=== PATIENT | female | born 1980 | race Two or more races ===

== ENCOUNTER 2018-06-02 08:43 | Emergency (ER) | payer SELFPAY ==
[2018-06-02 08:48] VITALS: BMI 33.3
--- NOTE | 2018-06-02 09:02 | PDOC ---
History of Present Illness - General Chief Complaint: Urinary Problem Stated Complaint: URINARY PROBLEM Time Seen by Provider: 06/02/18 08:51 History Source: Patient Exam Limitations: No Limitations - History of Present Illness Initial Comments: 06/02/18 09:05 This is a 37 YOF with h/o kidney stones (last 3 years ago) and HTN (medicated) who p/w acute onset 8/10 non-radiation left lower flank pain which started abruptly at 4 am and feels very similar to her prior kidney stones. She went to urinate and noticed blood-tinged urine as well as mild burning on urination. She additionally notes chills this morning, but denies any measured fever and denies n/v/d/v, rash, skin changes, n/t, focal weakness, vaginal bleeding or discharge, or any other symptoms recently. She was feeling well yesterday. She took Tylenol after the onset this morning but no additional medications. Past History - Past Medical History Allergies/Adverse Reactions: Allergies Allergy/AdvReac Type Severity Reaction Status Date / Time No Known Drug Allergies Allergy Verified 06/02/18 08:48 Home Medications: Ambulatory Orders Amlodipine Besylate [Norvasc -] 10 mg PO DAILY 10/17/15 Lisinopril/Hydrochlorothiazide [Lisinopril-Hctz 20-25 mg Tab] 1 each PO DAILY Oxycodone HCl/Acetaminophen [Percocet 5-325 mg Tablet] 1 tab PO Q6H PRN #12 tablet MDD 4 06/02/18 Sulfamethoxazole/Trimethoprim [Bactrim Ds -] 1 tab PO BID #14 tablet 06/02/18 Tamsulosin HCl [Flomax -] 0.4 mg PO DAILY #7 capsule 06/02/18 COPD: No HTN: Yes Kidney Stones: Yes - Surgical History Cholecystectomy: Yes - Reproductive History (#): 1 Para: 0 - Immunization History Immunization Up to Date: Yes - Suicide/Smoking/Psychosocial Hx Smoking History: Current every day smoker Have you smoked in the past 12 months: Yes Number of Cigarettes Smoked Daily: 3 Information on smoking cessation initiated: No Hx Alcohol Use: No Drug/Substance Use Hx: No Substance Use Type: None Hx Substance Use Treatment: No Review of Systems - Review of Systems Able to Perform ROS?: Yes Constitutional: Yes: Chills. No: Fever, Unexplained wgt Loss HEENTM: No: Nose Congestion, Throat Pain Respiratory: No: Cough, Shortness of Breath Cardiac (ROS): No: Chest Pain, Palpitations ABD/GI: No: Constipated, Diarrhea, Nausea, Vomiting : Yes: Burning, Dysuria, Flank Pain, Hematuria Musculoskeletal: No: Joint Pain, Neck Pain Integumentary: No: Bruising, Rash Neurological: No: Headache, Numbness, Tingling, Weakness, Dizziness Endocrine: No: Unexplained Weight Gain, Unexplained Weight Loss *Physical Exam - Vital Signs Last Vital Signs Temp Pulse Resp BP Pulse Ox 98.3 F 109 H 18 163/101 99 06/02/18 08:45 06/02/18 08:45 06/02/18 08:45 06/02/18 08:45 06/02/18 08:45 06/02/18 09:10 GENERAL: nontoxic and well-appearing, nourished, A/Ox4, slightly uncomfortable appearing and standing during H&P but no distress, speaking in full sentences in Indonesian, answers questions appropriately, accompanied by daughter HEENT: PERRLA, EOMI, moist mucous membranes, no posterior pharyngeal erythema, no tonsillar swelling or exudates, no cervical lymphadenopathy NECK: No cervical spine midline ttp or stepoff or deformity, full ROM, supple CARDIOVASCULAR: Regular rate and rhythm, normal S1S2, no MGR, radial and DP pulses 2+ and symmetric, capillary refill <2 seconds, extremities warm and well- perfused Chest wall: Normal appearance, no rash, no bruising, no costal stepoff or deformity, nontender to compression LUNGS/RESPIRATORY: No respiratory distress, normal and symmetric chest movements during respirations, lungs CTA bilaterally, equal breath sounds, no cyanosis, no nail clubbing GI/ABDOMEN: Normal symmetric appearance, normoactive bowel sounds, soft, no tenderness to palpation, no midline pulsatile masses, no palpated organomegaly : No CVA tenderness (even on the left) BACK: No midline ttp or stepoff or deformity of thoracic or lumbar spine EXTREMITIES: distal pulses 2+, warm and well-perfused, no LE edema SKIN: Warm and dry, no pallor, no jaundice, no bruising, no rash, no skin breakdown, no cuts, no lesions NEUROLOGICAL: GCS 15, CN II-XII grossly intact, ambulating with normal gait, moving all extremities, 5/5 strength proximally and distally, no facial droop, no decreased sensation ED Treatment Course - LABORATORY CBC & Chemistry Diagram: 06/02/18 09:15 06/02/18 09:02 Medical Decision Making - Medical Decision Making 06/02/18 09:11 Pt p/w left flank pain similar to her prior kidney stones. Initial Vital Signs Temp Pulse Resp BP Pulse Ox 98.3 F 109 H 18 163/101 99 06/02/18 08:45 06/02/18 08:45 06/02/18 08:45 06/02/18 08:45 06/02/18 08:45 Exam: As noted in Physical Exam section. DDX IBNLT: renal colic, obstructive uropathy, UTI/pyelonephritis, rental artery aneurysm or dissection (gail w/ hematuria and no stone visualized on imaging), ACS, AAA/AD, pneumothorax, PE, cholecystitis, cholangitis, pancreatitis, gastritis, PUD, colitis, ruptured diverticulosis, diverticulitis wwo abscess or perforation, appendicitis, hernia, SBO, malignancy, splenic infarction, mesenteric ischemia, bowel perforation, ovarian torsion, ovarian cyst, PID, TOA , endometriosis, fibroid, musculoskeletal, constipation, etc. W/U ordered: CBCD CMP Mg Phos UA UCx GC/Chlamydia/Trich ITA US Kidneys Ureters Bladder EKG TX ordered: IVF, Toradol 06/02/18 06/02/18 06/02/18 09:15 09:02 09:02 Sodium Potassium Chloride Carbon Dioxide Anion Gap BUN Creatinine Creat Clearance w eGFR Random Glucose Calcium Phosphorus Magnesium Total Bilirubin AST ALT Alkaline Phosphatase Total Protein Albumin Lipase Cancelled Urine Color Ltyellow Urine Appearance Slcloudy Urine pH 7.0 Ur Specific [place] 1.008 Urine Protein Negative Urine Glucose (UA) Negative Urine Ketones Negative Urine Blood 3+ H Urine Nitrite Negative Urine Bilirubin Negative Urine Urobilinogen Negative Ur Leukocyte Esterase Negative Urine WBC (Auto) 13 Urine RBC (Auto) 493 Ur Epithelial Cells Rare Urine HCG, Qual Negative 06/02/18 09:02 Sodium 138 Potassium 3.5 Chloride 104 Carbon Dioxide 23 Anion Gap 11 BUN 18 Creatinine 0.8 Creat Clearance w eGFR > 60 Random Glucose 96 Calcium 10.5 H Phosphorus 3.5 Magnesium 2.1 Total Bilirubin 0.6 AST 23 ALT 35 Alkaline Phosphatase 91 Total Protein 8.0 Albumin 4.3 Lipase 210 Urine Color Urine Appearance Urine pH Ur Specific [place] Urine Protein Urine Glucose (UA) Urine Ketones Urine Blood Urine Nitrite Urine Bilirubin Urine Urobilinogen Ur Leukocyte Esterase Urine WBC (Auto) Urine RBC (Auto) Ur Epithelial Cells Urine HCG, Qual 06/02/18 09:15 RBC 4.62 MCV 89.3 MCHC 36.1 H RDW 12.9 MPV 9.6 D Neutrophils % 80.8 Lymphocytes % 9.6 Monocytes % 7.7 Eosinophils % 1.4 Basophils % 0.5 US/KIDNEY / RENAL US [id number] US/PELVIC / BLADDER US HISTORY PROVIDED: Left flank pain. Real time examination of the kidneys and urinary bladder demonstrates the following: The kidneys are normal in size with the right kidney measuring 12.0 x 4.9 x 5.2 cm and the left kidney measuring 12.7 x 5.6 x 6.2 cm. They are normal in position and texture with no evidence of hydronephrosis or contour deforming renal masses. There is no sonographic evidence of nephrolithiasis. Evaluation of the urinary bladder demonstrates no intrinsic bladder abnormalities. A pre-void bladder volume of 116 cc was calculated. A post voiding image demonstrates adequate emptying of the bladder with no significant postvoid residual. The uterus is normal in size measuring 6.7 x 4.5 x 3.0 cm. No uterine masses are seen. A normal appearing endometrium of 3 mm thickness is identified. The ovaries are normal in size and texture with no evidence of adnexal masses or free pelvic fluid collections. IMPRESSION : Morphologically normal kidneys and urinary bladder with no evidence of nephrolithiasis, hydronephrosis or acute pathology. Please see above discussion. CT/SPIRAL- RENAL-STONE CT HISTORY PROVIDED: Left flank pain TECHNIQUE: Sequential axial images were obtained from the domes of the diaphragm through the symphysis pubis utilizing urinary tract calculi protocol. The lung bases are clear. There is a 6 mm calcification at the left ureterovesical junction consistent with a partially obstructing calculus. There is a mild degree of left -sided hydronephrosis associated with this stone. There is no evidence of additional calcifications within the kidneys, ureters or urinary bladder suspicious for urinary tract calculi. There is no evidence of right-sided hydronephrosis or obstructive uropathy. No significant abnormalities of the liver, spleen, pancreas, or adrenal glands are identified. The gallbladder has been removed. There is no evidence of intra-abdominal, retroperitoneal or pelvic mass lesions, fluid collections or lymphadenopathy. There is no evidence of acute bony pathology. IMPRESSION: 6 mm left UVJ calculus with mild hydronephrosis. Reassessment: Patient states pain free, repeat abdominal exam benign. Vital Signs Temperature 98.0 F 06/02/18 13:56 Pulse Rate 78 06/02/18 13:56 Respiratory Rate 18 06/02/18 13:56 Blood Pressure 152/90 06/02/18 13:56 O2 Sat by Pulse Oximetry (%) 98 06/02/18 13:56 06/02/18 13:[address] Melendrez who has seen the patient in the past. I discuss the case with him and he will see the patient in clinic on Tuesday. Referral information is given to the patient for Dr. Melendrez. Patient will be discharged home on Bactrim. This patient has gotten significant relief of symptoms while in the ED. On last reassessment, vitals are wnl, pain is reasonably controlled, and exam is benign. Workup is not concerning for emergency-level pathology at this time. This patient is appropriate for discharge with close outpatient follow up. They are comfortable with this plan and will follow up with their primary care provider in 1-3 days. E-Rx is sent to the Pt's pharmacy for tamsulosin 0.4mg daily x7 days. They are counseled to stay well-hydrated and take Tylenol/Motrin as needed for pain. Specific return precautions are discussed and they will come back to the ER if necessary. *DC/Admit/Observation/Transfer Diagnosis at time of Disposition: Ureteral colic - Discharge Dispostion Disposition: HOME Condition at time of disposition: Stable Decision to Admit order: No - Prescriptions Prescriptions: Oxycodone HCl/Acetaminophen [Percocet 5-325 mg Tablet] 1 tab PO Q6H PRN #12 tablet MDD 4 PRN Reason: Severe Pain Sulfamethoxazole/Trimethoprim [Bactrim Ds -] 1 tab PO BID #14 tablet Tamsulosin HCl [Flomax -] 0.4 mg PO DAILY #7 capsule - Referrals Referrals: José Melendrez MD [Staff Physician] - - Patient Instructions Printed Discharge Instructions: DI for Kidney Stones Additional Instructions: YOU WERE SEEN IN THE ER FOR A KIDNEY STONE THAT IS TRYING TO PASS. WE DID LABORATORY TESTS ON YOUR URINE AND FOUND BLOOD IN THE URINE, WHICH IS COMMON WITH KIDNEY STONES. WE DID NOT SEE SIGNS OF AN INFECTION IN THE URINE OR ON YOUR VITAL SIGNS. WE GAVE YOU MEDICATIONS AND IV FLUIDS WHICH HELPED YOUR SYMPTOMS. AFTER OUR ASSESSMENT, WE DO NOT BELIEVE YOU ARE HAVING A MEDICAL EMERGENCY AT THIS TIME, AND WE BELIEVE YOU ARE SAFE TO GO HOME. MACHINE CLOTH TRIMMER AND TAKE YOUR PRESCRIPTIONS THAT WE ARE SENDING ELECTRONICALLY TO YOUR PHARMACY. WE ARE GIVING YOU REFERRAL INFORMATION FOR A UROLOGIST IN CASE YOU NEED A NEW ONE. PLEASE ALSO TAKE OVER THE COUNTER PAIN MEDICATIONS FOR PAIN (TYLENOL 1000 MG EVERY 6 HOURS), FOLLOWING THE INSTRUCTIONS ON THE MEDICATION LABEL. PLEASE FOLLOW UP WITH YOUR PRIMARY CARE PROVIDER IN 1-3 DAYS. CALL THEIR CLINIC [facility], TELL THEM YOU WERE SEEN IN THE ER, AND TELL THEM YOU NEED AN APPOINTMENT. PLEASE COME BACK TO THE ER AT ANY TIME, 24 HOURS A DAY, FOR ANY NEW OR WORSENING SYMPTOMS, LIKE WORSENING PAIN UNRELIEVED WITH MEDICATIONS, FEVER, INABILITY TO URINATE, BURNING ON URINATION, OR OTHER SYMPTOMS. IF YOU ARE HAVING SEVERE OR LIFE THREATENING SYMPTOMS, OR SYMPTOMS THAT MAKE IT UNSAFE TO DRIVE OR HAVE SOMEONE DRIVE YOU, PLEASE CALL 911. [address]LLOW UP WITH DR. MELENDREZ WITH UROLOGY IN HIS CLINIC ON Tuesday06/05/18. Print Language: GAMBIAN - Post Discharge Activity Forms/Work/School Notes: Back to Work
[2018-06-02] MEDS ORDERED: KETOROLAC TROMETHAMINE 30 MG/1 ML VIAL IVPUSH ONE (09:03)
[2018-06-02] MEDS ORDERED: SODIUM CHLORIDE 0.9% 500 ML INFUS.BAG IV ONE (09:03)
[2018-06-02] MEDS ORDERED: KETOROLAC TROMETHAMINE 30 MG/1 ML VIAL ONE (09:08)
--- NOTE | 2018-06-02 09:33 | PDOC ---
Attending Attestation - Resident Resident Name: Marlen Page - ED Attending Attestation I have performed the following: I have examined & evaluated the patient, The case was reviewed & discussed with the resident, I agree w/resident's findings & plan, Exceptions are as noted - HPI HPI: 06/02/18 09:30 37-year-old female history of hypertension, renal colic presents with left flank pain. Patient reported the symptoms started today. States that she felt hematuria and suprapubic and left flank pain. No fevers or chills. States feels exactly like her prior kidney stones. - Physicial Exam PE: 06/02/18 09:31 GENERAL: Awake, alert, and fully oriented, in no acute distress HEAD: No signs of trauma EYES: BREA, sclera anicteric, conjunctiva clear ENT: Auricles normal inspection, hearing grossly normal, nares patent Moist mucosa NECK: Normal ROM, supple, ABDOMEN: Soft,. No guarding, no rebound. No masses. +mild suprapubic tenderness. +L CVA tenderness. EXTREMITIES: Normal range of motion, no edema. No clubbing or cyanosis. No cords, erythema, or tenderness NEUROLOGICAL: Cranial nerves II through XII grossly intact. Normal speech SKIN: Warm, Dry, normal turgor, no rashes or lesions noted - Medical Decision Making 06/02/18 09:32 Vital Signs Temp Pulse Resp BP Pulse Ox 98.3 F 109 H 18 163/101 99 06/02/18 08:45 06/02/18 08:45 06/02/18 08:45 06/02/18 08:45 06/02/18 08:45 37 syear old female presents with hematuria and left flank pain. Rule out renal colic. Differential includes pylonephritis. I agree with the labs and imaging. If the imaging demonstrates hydronephrosis, we'll pursue spiral CT. 06/02/18 10:55 CBC, BMP 06/02/18 09:15 06/02/18 09:02 CMP Sodium 138 mmol/L (136-145) 06/02/18 09:02 Potassium 3.5 mmol/L (3.5-5.1) 06/02/18 09:02 Chloride 104 mmol/L (98-107) 06/02/18 09:02 Carbon Dioxide 23 mmol/L (21-32) 06/02/18 09:02 Anion Gap 11 MMOL/L (8-16) 06/02/18 09:02 BUN 18 mg/dL (7-18) 06/02/18 09:02 Creatinine 0.8 mg/dL (0.55-1.3) 06/02/18 09:02 Creat Clearance w eGFR > 60 (>60) 06/02/18 09:02 Random Glucose 96 mg/dL (74-106) 06/02/18 09:02 Calcium 10.5 mg/dL (8.5-10.1) H 06/02/18 09:02 Phosphorus 3.5 mg/dL (2.5-4.9) 06/02/18 09:02 Magnesium 2.1 mg/dL (1.8-2.4) 06/02/18 09:02 Total Bilirubin 0.6 mg/dL (0.2-1) 06/02/18 09:02 AST 23 U/L (15-37) 06/02/18 09:02 ALT 35 U/L (13-61) 06/02/18 09:02 Alkaline Phosphatase 91 U/L (45-117) 06/02/18 09:02 Total Protein 8.0 g/dl (6.4-8.2) 06/02/18 09:02 Albumin 4.3 g/dl (3.4-5.0) 06/02/18 09:02 Urine Test Results Urine Color Ltyellow 06/02/18 09:02 Urine Appearance Slcloudy 06/02/18 09:02 Urine pH 7.0 (5.0-8.0) 06/02/18 09:02 Ur Specific [place] 1.008 (1.001-1.035) 06/02/18 09:02 Urine Protein Negative (NEGATIVE) 06/02/18 09:02 Urine Glucose (UA) Negative (NEGATIVE) 06/02/18 09:02 Urine Ketones Negative (NEGATIVE) 06/02/18 09:02 Urine Blood 3+ (NEGATIVE) H 06/02/18 09:02 Urine Nitrite Negative (NEGATIVE) 06/02/18 09:02 Urine Bilirubin Negative (<2.0 mg/dL) 06/02/18 09:02 Ur Leukocyte Esterase Negative (NEGATIVE) 06/02/18 09:02 Ur Epithelial Cells Rare /HPF (FEW) 06/02/18 09:02 06/02/18 11:28 Ultrasound demonstrates normal kidneys and no evidence of hydronephrosis or kidney stones. Even though the ultrasound does not demonstrate any acute findings, I suspect that this is likely renal colic. Ultrasound is not very sensitive for kidney stones. Given no hydronephrosis, less likely to have kidney stone obstruction. However, given the white blood cell count of 14 and small amounts of white blood cell counts, we'll initiate on oral antibiotics. Given elevated WBC, obtain spiral CT. 06/02/18 13:21 CT scan demonstrates 6 mm UVJ stone with mild hydronephrosis. Given WBC 14 and small WBC in urine and mild hydronephrosis with 6 mm UVJ, consult urology to r/o infected obstructed kidney stone. 06/02/18 13:[address] Oneal. Pt can be discharged home with bactrim, which I agree with. I suspect that the UA is likely secondary to hematuria and WBC is not primarily a urine infection. However, will cover with bactrim as prophylaxis. Pt is now pain free. Will d/c her and have her follow up with urology.
[2018-06-02 09:47] LABS: URINE APPEARANCE SLCLOUDY; URINE BILIRUBIN NEGATIVE (<2.0 mg/dL); URINE COLOR LTYELLOW; URINE GLUCOSE (UA) NEGATIVE (NEGATIVE); URINE KETONE NEGATIVE (NEGATIVE); URINE LEUK ESTERASE NEGATIVE (NEGATIVE); URINE NITRITE NEGATIVE (NEGATIVE); URINE PROTEIN NEGATIVE (NEGATIVE); URINE UROBILINOGEN NEGATIVE mg/dL (0.2-1.0)
[2018-06-02 09:52] LABS: BASO % 0.5 % (0-2.0); EOS % 1.4 % (0-4.5); HEMATOCRIT 41.2 % (32.4-45.2); HEMOGLOBIN 14.9 GM/dL (10.7-15.3); LYMPH % 9.6 % (8-40); MCH 32.3 pg (25.7-33.7); MCHC 36.1 g/dl (32.0-36.0); MEAN CELL VOLUME 89.3 fl (80-96); MEAN PLT VOLUME 9.6 fl (7.5-11.1); MONO % 7.7 % (3.8-10.2); NEUT % 80.8 % (42.8-82.8); PLATELET COUNT 349 K/MM3 (134-434); RBC 4.62 M/mm3 (3.60-5.2); RDW 12.9 % (11.6-15.6); WHITE BLOOD COUNT 14.5 K/mm3 (4.0-10.0)
[2018-06-02 09:54] LABS: EPI CELLS RARE /HPF (FEW)
[2018-06-02 10:13] LABS: ALBUMIN 4.3 g/dl (3.4-5.0); ALK PHOS 91 U/L (45-117); ANION GAP 11 MMOL/L (8-16); BILIRUBIN,TOTAL 0.6 mg/dL (0.2-1); BLOOD UREA NITROGEN 18 mg/dL (7-18); CALCIUM 10.5 mg/dL (8.5-10.1); CHLORIDE 104 mmol/L (98-107); CO2 23 mmol/L (21-32); CREATININE 0.8 mg/dL (0.55-1.3); GLUCOSE,RANDOM 96 mg/dL (74-106); MAGNESIUM 2.1 mg/dL (1.8-2.4); PHOSPHOROUS 3.5 mg/dL (2.5-4.9); POTASSIUM 3.5 mmol/L (3.5-5.1); SGOT/AST 23 U/L (15-37); SGPT/ALT 35 U/L (13-61); SODIUM 138 mmol/L (136-145)
[2018-06-02 10:57] LABS: LIPASE 210 U/L (73-393)
[2018-06-02] MEDS ORDERED: SULFAMETHOXAZOLE/TRIMETHOPRIM 800MG/160MG D.S. TABLET PO ONE (13:37)
[2018-06-02] MEDS ORDERED: SULFAMETHOXAZOLE/TRIMETHOPRIM 800MG/160MG D.S. TABLET ONE (13:47)
[2018-06-02 13:57] VITALS: BP 152/90; PULSE 78; TEMP 98
== END 2018-06-02 13:57 | disposition home or self-care (01) ==
LOC: JER 08:43
PROC: 3E0333Z Introduction of Anti-inflammatory into Peripheral Vein, Percutaneous Approach (ICD-10-PCS; principal; 2018-06-02)
PROC: 3E0337Z Introduction of Electrolytic and Water Balance Substance into Peripheral Vein, Percutaneous Approach (ICD-10-PCS; 2018-06-02)
DX: N20.1 Calculus of ureter (principal)
CPT/HCPCS: 36415; 74176; 76775-TC; 76856-TC; 80053; 81003; 81015; 83690; 83735; 84100; 84703; 85025; 87086; 99284-25